=== PATIENT | female | born 1990 | race Caucasian/White ===

== ENCOUNTER 2022-12-04 16:22 | Emergency (ER) | payer BC ==
[2022-12-04] MEDS ORDERED: Lactated Ringers 1,000 ML IV ONE (16:44)
[2022-12-04 17:00] LABS: ESTIMATED GFR 88 mL/min (>60)
== END 2022-12-04 20:11 | disposition home or self-care (01) ==
LOC: JD.ED 16:22
DX: N93.9 Abnormal uterine and vaginal bleeding, unspecified (principal); R55 Syncope and collapse; Z87.410 Personal history of cervical dysplasia
CPT/HCPCS: 36415; 80053; 85025; 85610; 85730; 86850; 86900; 86901; 93005; 96360; 99284; J7120; 93010; 99283